=== PATIENT | female | born 1955 ===

== ENCOUNTER 2021-03-10 06:39 | Day surgery (SDC) | payer OTHER ==
[~2021-03-10 06:39] MED LIST: FOLIC ACID20 MG PO; LOSARTAN-HCTZ1 EAC2 PO; MILLIPRED5 MG PO; NORVASC5 MG PO; TREXALL5 MG PO; ZEGERID 40 MG1 EACH PO
== END 2021-03-10 20:05 | disposition home or self-care (01) ==
LOC: CIR.AMB 06:39
PROVIDERS: ATTEND Orthopaedic Surgery Hand Surgery
DX: M13.841 Other specified arthritis, right hand (principal); M66.241 Spontaneous rupture of extensor tendons, right hand; Z20.822 Contact with and (suspected) exposure to COVID-19